=== PATIENT | male | born 1980 | race African-American/Black ===

== ENCOUNTER 2018-04-19 22:36 | Emergency (ER) | payer OTHER ==
[~2018-04-19] VITALS: Ht 172.7 cm; Wt 90.7 kg
[2018-04-20] MEDS ORDERED: HYDROCHLOROTH12.5 M1 PO (00:15)
[2018-04-20 00:24] LABS: ABSOLUTE BASOPHILS 0.1 thou/uL (0.0-0.2); ABSOLUTE EOSINOPHILS 0.2 thou/uL (0.0-0.7); ABSOLUTE LYMPHOCYTES 1.2 thou/uL (0.8-5.3); ABSOLUTE MONOCYTES 0.8 thou/uL (0.0-1.2); ABSOLUTE NEUTROPHILS 6.9 thou/uL (1.6-8.1); BASOPHILS 0.8 %; EOSINOPHILS 1.7 %; HEMOGLOBIN 14.1 gm/dL (14.0-18.0); LYMPHOCYTES 13.5 %; MCH 26.7 pg (26.0-34.0); MCHC 33.5 g/dL (28.0-37.0); MCV 79.8 fL (80.0-100.0); MONOCYTES 8.5 %; MPV 7.4 fl. (7.2-11.1); NUCLEATED RBCS 0 /100WBC; PLATELET COUNT* 355 thou/uL (150-400); POLYS 75.5 %; RBC 5.27 mil/uL (4.50-6.00); RDW-CV 14.3 % (10.5-14.5); WBC 9.1 thou/uL (4.0-11.0)
[2018-04-20 00:38] LABS: APTT 28.8 Seconds (25.0-31.3); PROTIME 10.2 Seconds (9.20-11.50)
[2018-04-20] MEDS ORDERED: AUGMENTIN 875-1 EACH PO (01:11)
[2018-04-20 01:41] VITALS: BP 137/86
== END 2018-04-20 01:42 | disposition home or self-care (01) ==
LOC: M.ERS 22:36
PROVIDERS: Nurse Practitioner Family
DX: J01.00 Acute maxillary sinusitis, unspecified (principal); R04.0 Epistaxis; I10 Essential (primary) hypertension

== ENCOUNTER 2019-12-30 16:52 | Emergency (ER) | payer OTHER ==
[~2019-12-30] VITALS: Ht 172.7 cm; Wt 97.5 kg
[~2019-12-30 16:52] MED LIST: AUGMENTIN 875-1 EACH PO; BACTRIM DS TAB1 EAC1 PO; HYDROCHLOROTH12.5 M1 PO
[2019-12-30] MEDS ORDERED: PROTONIX 20 MG20 MG PO (17:00)
[2019-12-30] MEDS ORDERED: AZOR 5-20 MG T1 EACH PO (17:02)
[2019-12-30] MEDS ORDERED: AZO URINARY P99.5 MG PO (17:04)
[2019-12-30 17:09] LABS: URINE BILIRUBIN NEGATIVE (Negative); URINE BLOOD NEGATIVE (Negative); URINE CLARITY CLEAR; URINE LEUKOCYTES-REFLEX NEGATIVE (Negative); URINE NITRITE-REFLEX POSITIVE (Negative); URINE SPECIFIC GRAVITY 1.025 (1.005-1.030)
[2019-12-30 17:10] LABS: URINE COLOR ORANGE
[2019-12-30 17:11] LABS: SQUAMOUS 0-3 Few /LPF (0-3); URINE GLUCOSE-RANDOM ND (Negative); URINE KETONES ND (Negative); URINE PROTEIN ND (Negative); URINE UROBILINOGEN ND E.U./dl (0.2-1.0)
[2019-12-30 17:12] LABS: BACTERIA-REFLEX 1-9 Few /HPF (None Seen); CASTS None Seen /LPF (None Seen); CRYSTALS None Seen /LPF (None Seen); MUCUS None Seen strn/LPF (None Seen); URINE RBC 0-2 Rare /HPF (0-2); URINE WBC-REFLEX 0-5 Rare /HPF (0-5)
[2019-12-30 17:51] LABS: ABSOLUTE EOSINOPHILS 0.1 thou/uL (0.0-0.7); ABSOLUTE LYMPHOCYTES 2.1 thou/uL (0.8-5.3); ABSOLUTE MONOCYTES 0.4 thou/uL (0.0-1.2); ABSOLUTE NEUTROPHILS 4.8 thou/uL (1.6-8.1); BASOPHILS 0.6 %; EOSINOPHILS 0.9 %; HEMATOCRIT 47.4 % (42.0-52.0); HEMOGLOBIN 15.6 gm/dL (14.0-18.0); LYMPHOCYTES 28.1 %; MCH 26.3 pg (26.0-34.0); MCHC 32.9 g/dL (28.0-37.0); MCV 79.8 fL (80.0-100.0); MONOCYTES 5.4 %; MPV 8.3 fl. (7.2-11.1); NUCLEATED RBCS 0 /100WBC; PLATELET COUNT* 276 thou/uL (150-400); RBC 5.94 mil/uL (4.50-6.00); RDW-CV 14.6 % (10.5-14.5); WBC 7.5 thou/uL (4.0-11.0)
[2019-12-30 17:57] LABS: CALCIUM 9.9 mg/dL (8.5-10.1); CREATININE 1.6 mg/dL (0.6-1.3); POTASSIUM 3.6 mmol/L (3.5-5.1)
[2019-12-30 18:01] LABS: ALBUMIN 4.9 g/dL (3.4-5.0); TOTAL BILIRUBIN 0.6 mg/dL (<0.1-1.0); TOTAL PROTEIN 9.2 g/dL (6.4-8.2)
[2019-12-30] MEDS ORDERED: CIPRO500 MG PO (18:04)
[2019-12-30] MEDS ORDERED: NAPROSYN500 MG PO (18:04)
[2019-12-30] MEDS ORDERED: PHENAZOPYRIDIN200 M2 PO (18:04)
[2019-12-30 18:14] VITALS: BP 136/81
== END 2019-12-30 18:15 | disposition home or self-care (01) ==
LOC: M.ERS 16:52
PROVIDERS: Physician Assistant
DX: N39.0 Urinary tract infection, site not specified (principal)

== ENCOUNTER 2020-01-03 00:20 | Emergency (ER) | payer OTHER ==
[~2020-01-03] VITALS: Ht 170.2 cm; Wt 97.5 kg
[~2020-01-03 00:20] MED LIST changes: +AZO URINARY P99.5 MG PO; +AZOR 5-20 MG T1 EACH PO; +CIPRO500 MG PO; +NAPROSYN500 MG PO; +PHENAZOPYRIDIN200 M2 PO; +PROTONIX 20 MG20 MG PO
[2020-01-03] MEDS ORDERED: NORCO 5-325 TA1 EAC2 PO (01:24)
[2020-01-03] MEDS ORDERED: FLEXERIL PO (01:24)
[2020-01-03 01:38] VITALS: BP 144/79
== END 2020-01-03 01:38 | disposition home or self-care (01) ==
LOC: M.ERS 00:20
DX: M54.6 Pain in thoracic spine (principal); R14.0 Abdominal distension (gaseous); R19.7 Diarrhea, unspecified; I10 Essential (primary) hypertension; K21.9 Gastro-esophageal reflux disease without esophagitis; Z79.899 Other long term (current) drug therapy